=== PATIENT | male | born 1950 | race Caucasian/White ===

== ENCOUNTER 2019-04-13 10:39 | Inpatient (IN) | payer OTHER, BC ==
[~2019-04-13] VITALS: Ht 180.3 cm; Wt 91.2 kg
[2019-04-13 10:41] VITALS: BP 130/73
[2019-04-13 10:57] LABS: ABSOLUTE NEUTROPHILS 4.2 thou/uL (1.4-8.2); BASOPHILS 0.5 % (0.0-2.0); EOSINOPHILS 0.2 % (0.0-3.0); HEMATOCRIT 45.3 % (42.0-52.0); HEMOGLOBIN 15.7 gm/dL (14.0-18.0); LYMPHOCYTES 22.3 % (24.0-44.0); MCH 31.6 pg (26.0-34.0); MCHC 34.6 g/dL (28.0-37.0); MCV 91.2 fL (80.0-100.0); MONOCYTES 8.6 % (1.0-8.0); PLATELET COUNT 184 thou/uL (150-400); POLYS 68.4 % (36.0-66.0); RBC 4.97 mil/uL (4.50-6.00); RDW 12.9 % (10.5-14.5); WBC 6.2 thou/uL (4.0-11.0)
[2019-04-13 11:04] LABS: ANION GAP 8 mmol/L (7-16); BUN 14 mg/dL (7-18); CALCIUM 9.7 mg/dL (8.5-10.1); CHLORIDE 104 mmol/L (98-107); CO2 26 mmol/L (21-32); CREATININE 1.4 mg/dL (0.7-1.3); GLUCOSE 121 mg/dL (74-106); POTASSIUM 4.6 mmol/L (3.5-5.1); SODIUM 138 mmol/L (136-145)
[2019-04-13 11:13] LABS: ALBUMIN 4.1 g/dL (3.4-5.0); SGOT 21 U/L (15-37); SGPT 39 U/L (30-65); TOTAL BILIRUBIN 0.5 mg/dL (<0.1-1.0); TOTAL PROTEIN 8.2 g/dL (6.4-8.2); TROPONIN-I <0.06 ng/mL (<0.06)
[2019-04-13] MEDS ORDERED: TOPROL XL25 MG PO (11:55)
[2019-04-13] MEDS ORDERED: ASPIR 8181 MG PO (11:55)
--- NOTE | 2019-04-13 13:23 | EKG ---
[address] [address] ELECTROCARDIOGRAM REPORT Name: SENDY MEREDITH Room #: 170-23 ADM IN M.R.#: [id number] Admission: 04/13/19 Attend Phys: Kd Ayala MD Discharge: Date of : 54 Report #: [id number] THIS REPORT FOR: //name// [facility] ED Test Date: 2019-04-13 Test Time: 10:42:44 Pat Name: SENDY MEREDITH Department: Room: 170 Gender: M [employer]: gill : 1950 Requested By: Noe Rashid Order Number: [id number] MD: Hung Doll Measurements Intervals [place] Rate: 138 P: [place]: QRS: 40 QRSD: 130 T: 16 QT: 344 QTc: 522 Interpretive Statements Atrial flutter with predominant 2:1 AV block Ventricular bigeminy Nonspecific intraventricular conduction delay Electronically Signed On 04-13-2019 13:23:25 CDT by Hung Doll [email or web address] <ELECTRONICALLY SIGNED> By: Hung Doll MD 04/13/19 1323 1042 1042 MD TARSHA Daley
--- NOTE | 2019-04-13 13:24 | EKG ---
[address] [address] ELECTROCARDIOGRAM REPORT Name: SENDY MEREDITH Room #: 170-23 ADM IN M.R.#: [id number] Admission: 04/13/19 Attend Phys: Kd Ayala MD Discharge: Date of : 54 Report #: [id number] THIS REPORT FOR: //name// [facility] ED Test Date: 2019-04-13 Test Time: 10:54:33 Pat Name: SENDY MEREDITH Department: Room: 170 Gender: M [employer] Associate: gill : 1950 Requested By: Noe Rashid Order Number: [id number] MD: Hung Doll Measurements Intervals [place] Rate: 63 P: 47 HI: 157 QRS: 47 QRSD: 92 T: 45 QT: 405 QTc: 415 Interpretive Statements Sinus rhythm Abnormal R-wave progression, early transition No previous ECG available for comparison Electronically Signed On 04-13-2019 13:24:10 CDT by Hung Doll [email or web address] <ELECTRONICALLY SIGNED> By: Hung Doll MD 04/13/19 1324 1054 1054 MD TARSHA Daley
[2019-04-13 14:09] VITALS: BP 133/73
--- NOTE | 2019-04-13 14:30 | NUR ---
ATTEMPTED TO CALL REPORT, NURSE NOT READY
[2019-04-13 16:20] VITALS: BP 116/47
--- NOTE | 2019-04-13 18:18 | NUR ---
[facility] 1620. PT A&O X4. COMPLETED ADMISSION ASSESSMENT, CHARTING, AND VITALS. TELE MONITORING STARTED. PT ACCOMPANIED WITH . PT'S VITAL SIGNS ARE STABLE. PT STATED HE DOES NOT HAVE CHEST PAIN. PT STATED HE WAS NOT SOB. PT STATED HIS PAIN LEVEL WAS 0/10. EDUCATED PT AND WITH NEW ADMISSION INFORMATION AND THE POC. PT AND STATED UNDERSTANDING. FALL PRECAUTIONS IN PLACE. ASSESSMENT CHARTED. SPOKE WITH PT TO INFORM THE NEXT STEPS IN HIS POC. PT STATED UNDERSTANDING. PT NPO FOR STRESS TEST IN AM. PT AMBULATES STEADY AND BALANCED. PT ORDERED DINNER. PT READING COMFORTABLY IN BED WITHOUT FURTHER QUESTIONS AND CONCERNS. WILL CONTINUE TO MONITOR.
[2019-04-13 20:40] VITALS: BP 118/55
--- NOTE | 2019-04-14 03:54 | NUR ---
ASSUMED CARE AT 1900. PT SPOUSE AT BEDSIDE. VSS AND SINUS RHYTHM. PT NPO AT MIDNIGHT FOR STRESS TEST IN AM. PT HEART SINUS GANGA WHILE SLEEPING. WILL CONTINUE TO MONITOR PER PLAN OF CARE.
[2019-04-14 05:31] VITALS: BP 110/50
--- NOTE | 2019-04-14 08:16 | 2DMMODE ---
[facility] [address] [place] [address] 2 D/M-MODE ECHOCARDIOGRAM Name: SENDY MEREDITH Room #: 214-P ADM IN M.R.#: [id number] Admission: 04/13/19 Attend Phys: Kd Ayala MD Discharge: Date of : 54 Date of Service: 04/14/19 0816 Report #: [id number] THIS REPORT FOR: //name// APPROVED REPORT Study performed: 04/14/2019 07:03:01 EXAM: Comprehensive 2D, Doppler, and color-flow Echocardiogram Patient Location: Bedside Room #: 214 Status: routine BSA: 2.08 HR: 56 bpm BP: 110/50 mmHg Rhythm: NSR Other Information Study Quality: Good Indications Chest pain, Atrial flutter. 2D Dimensions RVDd: 36.29 mm IVSd: 9.53 (7-11mm) LVOT Diam: 20.86 (18-24mm) LVDd: 45.44 mm PWd: 9.79 (7-11mm) Ascending Ao: 34.52 (22-36mm) LVDs: 29.88 (25-40mm) Aortic Root: 37.68 mm Volumes Left Atrial Volume (Systole) Single Plane 4CH: 39.91 mL Single Plane 2CH: 43.55 mL LA ESV Index: 22.00 mL/m2 Aortic Valve AoV Peak Mike.: 1.39 m/s AO Peak Gr.: 7.70 mmHg LVOT Max P.54 mmHg LVOT Max V: 1.37 m/s HENRI Vmax: 3.38 cm2 Mitral Valve E/A Ratio: 1.8 MV Decel. Time: 190.66 ms MV E Max Mike.: 0.88 m/s [facility] [address] [place] [address] 2 D/M-MODE ECHOCARDIOGRAM Name: SENDY MEREDITH Room #: 214-P ADM IN M.R.#: [id number] Admission: 04/13/19 Attend Phys: Kd Ayala MD Discharge: Date of : 54 Date of Service: 04/14/19 0816 Report #: [id number] MV A Mike.: 0.49 m/s MV PHT: 55.29 ms IVRT: 58.82 ms Pulmonary Vein P Vein S: 0.47 m/s P Vein A: 0.30 m/s P Vein D: 0.43 m/s P Vein A Dur.: 96.9 msec P Vein S/D Ratio: 1.09 Tricuspid Valve TR Peak Mike.: 2.00 m/s RAP Estimate: 5.00 mmHg TR Peak Gr.: 16.00 mmHg PA Pressure: 21.00 mmHg Left Ventricle The left ventricle is normal size. There is normal LV segmental wall motion. There is normal left ventricular wall thickness. Left ventricular systolic function is normal. LVEF is 60-65%. The left ventricular diastolic function is normal. Right Ventricle The right ventricle is normal size. The right ventricular systolic function is normal. Atria The left atrium size is normal. The right atrium size is normal. Aortic Valve The aortic valve is normal in structure. No aortic regurgitation. There is no aortic valvular stenosis. Mitral Valve The mitral valve is normal in structure. Mild mitral regurgitation. Tricuspid Valve The tricuspid valve is normal in structure. Mild tricuspid regurgitation. Estimated PAP is 20-25mmHg. Pulmonic Valve The pulmonary valve is normal in structure. Mild pulmonic regurgitation. Great Vessels Aortic root is borderline dilated. The ascending aorta is normal in [facility] [address] [place] [address] 2 D/M-MODE ECHOCARDIOGRAM Name: SENDY MEREDITH Room #: 214-P ADM IN M.R.#: [id number] Admission: 04/13/19 Attend Phys: Kd Ayala MD Discharge: Date of : 54 Date of Service: 04/14/19 0816 Report #: [id number] size. IVC is normal in size and collapses >50% with inspiration. Pericardium There is no pericardial effusion. <Conclusion> Left ventricular systolic function is normal. There is normal LV segmental wall motion. LVEF is 60-65%. The aortic valve is normal in structure. No aortic regurgitation or stenosis The mitral valve is normal in structure. Mild mitral regurgitation. Mild tricuspid regurgitation. Estimated pulmonary artery pressure of 20-25mmHg. There is no pericardial effusion. <ELECTRONICALLY SIGNED> By: Olivier Justice MD, [facility] 04/14/19815 5 5 Olivier Justice MD, [facility] /INF
--- NOTE | 2019-04-14 18:22 | NUR ---
ASSUMED CARE OF PATIENT AT 0700. ASSESSMENTS CHARTED. PATIENT TAKEN FOR NUC MED STRESS TEST AT 1000, AWAITING RESULTS AT SHIFT CHANGE. PATIENT'S AT THE BEDSIDE. PATIENT DENIES ANY CHEST PAIN. PATIENT TO CONTINUE WITH POC.
[2019-04-14] MEDS ORDERED: TAMBOCOR 100 M100 M1 PO (19:31)
[2019-04-14 20:00] VITALS: BP 110/50
[2019-04-14 20:04] VITALS: BP 110/50
[2019-04-14 20:47] VITALS: BP 110/50
== END 2019-04-14 20:50 | disposition home or self-care (01) | DRG 310 ==
LOC: ER 10:39 → EROBS 12:15 → 2N 12:15
PROVIDERS: Emergency Medicine; ADMIT Internal Medicine
DX: I48.92 Unspecified atrial flutter (principal); I48.91 Unspecified atrial fibrillation; Z87.891 Personal history of nicotine dependence; Z79.82 Long term (current) use of aspirin; Z79.899 Other long term (current) drug therapy
CPT/HCPCS: 10081; 10194